=== PATIENT | female | born 1970 | race Hispanic/Latino ===

== ENCOUNTER 2021-11-05 00:25 | Emergency (ER) | payer OTHER ==
[~2021-11-05] VITALS: Ht 152.4 cm; Wt 78.7 kg
[2021-11-05] MEDS ORDERED: ONDANSETRON HCL 4 MG ORAL DISINTEGRATING TAB PO ONE (02:00)
[2021-11-05] MEDS ORDERED: KETOROLAC TROMETHAMINE 60 MG/2 ML VIAL IM ONE (02:00)
[2021-11-05] MEDS ORDERED: CYCLOBENZAPRINE HCL 10 MG TAB PO ONE (02:00)
[2021-11-05] MEDS ORDERED: KETOROLAC TROMETHAMINE 60 MG/2 ML VIAL ONE (02:17)
[2021-11-05] MEDS ORDERED: CYCLOBENZAPRINE HCL 10 MG TAB ONE (02:17)
[2021-11-05] MEDS ORDERED: ONDANSETRON HCL 4 MG ORAL DISINTEGRATING TAB ONE (02:18)
[2021-11-05] MEDS ORDERED: ULTRAM 50MG50 MG PO (02:33)
[2021-11-05] MEDS ORDERED: NAPROSYN500 MG PO (02:33)
[2021-11-05] MEDS ORDERED: METHOCARBAMOL500 MG PO (02:36)
[2021-11-05] MEDS ORDERED: ONDANSETRON ODT4 MG PO (02:48)
[2021-11-05 02:56] VITALS: BP 166/93
== END 2021-11-05 02:56 | disposition home or self-care (01) ==
LOC: FSED 00:45
DX: S13.4XXA Sprain of ligaments of cervical spine, initial encounter (principal); M62.838 Other muscle spasm; V49.59XA Passenger injured in collision with other motor vehicles in traffic accident, initial encounter; Y92.415 Exit ramp or entrance ramp of street or highway as the place of occurrence of the external cause
CPT/HCPCS: 81003; 96372; 99283; J1885; Q0162